=== PATIENT | female | born 1930 | race Caucasian/White ===

== ENCOUNTER 2017-05-20 09:26 | Emergency (ER) | payer MEDICARE ==
[2017-05-20 10:27] VITALS: BP 134/55
--- NOTE | 2017-05-20 11:46 | UC ---
Skin Complaint HPI - HPI Summary HPI Summary: pt noted painful itchy spot on the outside of her left ankle yesterday. she thinks it is a bug bite. also noted some itching to a lesser extent on her rt ankle. denies swelling, calf pain, sob, cough, pnd/orthopnea. - History of Current Complaint Chief Complaint: RENEEkin Stated Complaint: BILATERAL ANKLE SWELLING (INSECT BITE) Hx Obtained From: Patient Hx Last Menstrual Period: "years ago." Onset/Duration: Sudden Onset, Lasting Days Onset Severity: Mild Current Severity: Mild Pain Intensity: 2 Location: Other - left ankle Character: Pruritus, Pain Aggravating: Nothing Alleviating: Nothing Associated Signs & Symptoms: Positive: Rash, Tenderness. Negative: Nausea, Vomiting, Diaphoresis, Difficulty Breathing, Fever, Chills, Cough, Wheezing, Chest Pain, Abdominal Pain, Lightheadedness, Syncope, Drainage, Bruising, Red Streaks, Joint Swelling Related History: Possible Reaction to: Insect - Allergy/Home Medications Allergies/Adverse Reactions: Allergies Allergy/AdvReac Type Severity Reaction Status Date / Time Lactose Intolerance (GI) Allergy GI Upset Verified 05/20/17 10:19 Penicillins Allergy Unknown Verified 05/20/17 10:19 Reaction Details Sulfa Antibiotics Allergy Unknown Verified 05/20/17 10:19 Reaction Details Codeine AdvReac Headache, Verified 05/20/17 10:19 Nausea Home Medications: Home Medications Acetaminophen [Acetaminophen Extra Stren] 500 mg PO BID PRN 05/20/17 [History Confirmed 05/20/17] Cyclosporine 0.05% OPHTH (NF) [Restasis 0.05% OPHTH] 1 drop BOTH EYES BID [History Confirmed 05/20/17] Review of Systems Constitutional: Negative Skin: Rash ENT: Negative Respiratory: Negative Cardiovascular: Negative Gastrointestinal: Negative Genitourinary: Negative Musculoskeletal: Negative Neurological: Negative All Other Systems Reviewed And Are Negative: Yes PMH/Surg Hx/FS Hx/Imm Hx Cardiovascular History: Hypertension Other History Of: Negative For: HIV, Hepatitis B, Hepatitis C - Surgical History Surgical History: Yes Surgery Procedure, Year, and Place: Bilateral Cataract Extraction. Eye lift - Family History Known Family History: Positive: Hypertension Negative: Cardiac Disease, Diabetes, Renal Disease - Social History Occupation: Retired Alcohol Use: Occasionally Substance Use Type: None Smoking Status (MU): Never Smoked Tobacco - Immunization History Most Recent Influenza Vaccination: [id number] Physical Exam Triage Information Reviewed: Yes Appearance: Well-Appearing, No Pain Distress, Well-Nourished Vital Signs: Initial Vital Signs Temp 98.2 F 05/20/17 10:22 Pulse 80 05/20/17 10:22 Resp 20 05/20/17 10:22 BP 134/55 05/20/17 10:22 Pulse Ox 98 05/20/17 10:22 Vital Signs Reviewed: Yes Eyes: Positive: Conjunctiva Clear. Negative: Discharge ENT: Positive: Hearing grossly normal. Negative: Muffled/hoarse voice Neck: Positive: Supple Respiratory: Positive: Lungs clear, Normal breath sounds, No respiratory distress, No accessory muscle use Cardiovascular: Positive: RRR, No Murmur Musculoskeletal Exam: Normal Neurological: Positive: Alert, Muscle Tone Normal Psychological: Positive: Age Appropriate Behavior Skin: Positive: Other - area of puritis and tenderness on later aspect of rt ankle surrounding a central spot that looks like a bug bite. no redness or calor noted Course/Dx - Differential Diagnoses - Skin Complaint Differential Diagnoses: Cellulitis, Scabies, Other - insect bite, tick bite - Diagnoses Provider Diagnoses: tick bite Discharge - Discharge Plan Condition: Stable Disposition: HOME Patient Education Materials: Insect Bite or Sting (ED), Tick Bite (ED), Lyme Disease (ED), Cold Compress or Soak (ED) Referrals: Soulemyane Ibarra MD [Primary Care Provider] - If Needed Additional Instructions: YOU HAVE WHAT APPEARS TO BE AN INSECT BITE ON YOUR LEFT ANKLE. THE BITE LOOKS LIKE IT COULD HAVE BEEN A TICK BITE BUT WE ARE NOT SURE. SO, WE HAVE INCLUDED INFORMATION ON TICK BITES. BECAUSE TICK BITES CAN CAUSE LYME DISEASE, WE ALSO INCLUDED INFORMATION ON LYME DISEASE SO THAT YOU WILL KNOW WHAT THE SYMPTOMS ARE THAT SHOULD GIVE YOU CAUSE TO SEEK FURTHER EVALUATION. Images Feet (Multiple View): 1 - tender, puritic area
== END 2017-05-20 11:34 | disposition home or self-care (01) ==
LOC: UCCORT 09:26
DX: S90.562A Insect bite (nonvenomous), left ankle, initial encounter (principal); W57.XXXA Bitten or stung by nonvenomous insect and other nonvenomous arthropods, initial encounter; Y92.9 Unspecified place or not applicable
CPT/HCPCS: 99212; G0463

== ENCOUNTER 2017-07-27 12:42 | Emergency (ER) | payer MEDICARE ==
[2017-07-27 13:02] VITALS: BP 134/60
--- NOTE | 2017-07-27 14:03 | UC ---
Abdominal Pain Female HPI - HPI Summary HPI Summary: she says she had a pain in the lefter lateral abd last night and a briefly this morning. It has resolved now. There is no constipation, urinary symptoms, vomiting, blood in stool, fever and she is eating without symptoms. she has had a pain in this location before as well. she also believes she fell onto her left side within the last week. - History of Current Complaint Chief Complaint: UCAbdominalPain Stated Complaint: LEFT SIDE PAIN Time Seen by Provider: 07/27/17 13:38 Hx Obtained From: Patient Hx Last Menstrual Period: "years ago." Onset/Duration: Sudden Onset Severity Initially: Severe Severity Currently: None Location: Discrete At: LUQ Radiates: No Character: Aching Aggravating Factor(s): Nothing Alleviating Factor(s): Nothing Associated Signs and Symptoms: Negative: Fever, Cough, Chest Pain, Dizzy, Back Pain, Constipation, Blood in Stool, Urinary Symptoms, Decreased Appetite, Vaginal Bleeding, Vaginal Discharge, Nausea, Vomiting, Diarrhea Allergies/Adverse Reactions: Allergies Allergy/AdvReac Type Severity Reaction Status Date / Time Lactose Intolerance (GI) Allergy GI Upset Verified 07/27/17 13:02 Penicillins Allergy Unknown Verified 07/27/17 13:02 Reaction Details Sulfa Antibiotics Allergy Unknown Verified 07/27/17 13:02 Reaction Details Codeine AdvReac Headache, Verified 07/27/17 13:02 Nausea PMH/Surg Hx/FS Hx/Imm Hx Previously Healthy: No Other History Of: Negative For: HIV, Hepatitis B, Hepatitis C - Surgical History Surgical History: Yes Surgery Procedure, Year, and Place: Bilateral Cataract Extraction. Eye lift - Family History Known Family History: Positive: Hypertension Negative: Cardiac Disease, Diabetes, Renal Disease - Social History Occupation: Retired Alcohol Use: Occasionally Substance Use Type: None Smoking Status (MU): Never Smoked Tobacco - Immunization History Most Recent Influenza Vaccination: [id number] Review of Systems Gastrointestinal: Abdominal Pain All Other Systems Reviewed And Are Negative: Yes Physical Exam Triage Information Reviewed: Yes Appearance: Well-Appearing, No Pain Distress, Well-Nourished Vital Signs: Initial Vital Signs Temp 98.3 F 07/27/17 12:57 Pulse 73 07/27/17 12:57 Resp 16 07/27/17 12:57 BP 134/60 07/27/17 12:57 Pulse Ox 97 07/27/17 12:57 Vital Signs Reviewed: Yes Eye Exam: Normal ENT Exam: Normal Dental Exam: Normal Neck exam: Normal Respiratory Exam: Normal Cardiovascular Exam: Other - During my exam she has increased pain with cough and palpation of the left lateral lower ribs. There was no pain with forced left hip flexion. Abd was commpletely soft and non tender even with deep palpation. Abdominal Exam: Normal Abdomen Description: Negative: CVA Tenderness (R), CVA Tenderness (L), Hepatomegaly, Peritoneal Signs, Pulsatile Mass, Splenomegaly Musculoskeletal Exam: Normal Neurological Exam: Normal Psychological Exam: Normal Skin Exam: Normal Abd Pain Female Course/Dx - Course Course Of Treatment: no radiation to the flank or groin to suggest AAA and the pain was reprodicible with palpation of the left ribs. she says she remembers a few falls lately once on the right shoulder which needed PT and again on her left side. the pain has resoved now. No clinical signs of severe diverticulitis , constipation, kidney stone, uti. - Differential Dx/Diagnosis Provider Diagnoses: left rib pain. Discharge - Discharge Plan Condition: Good Disposition: HOME Patient Education Materials: Rib Contusion (ED) Referrals: Souleymane Ibarra MD [Primary Care Provider] - 3 Days
== END 2017-07-27 14:02 | disposition home or self-care (01) ==
LOC: UCCORT 12:42
DX: R07.81 Pleurodynia (principal); Z88.0 Allergy status to penicillin; Z88.2 Allergy status to sulfonamides; Z88.5 Allergy status to narcotic agent
CPT/HCPCS: 99211; G0463

== ENCOUNTER 2017-08-15 15:28 | Emergency (ER) | payer MEDICARE ==
[2017-08-15 15:48] VITALS: BP 119/63
--- NOTE | 2017-08-15 16:52 | RAD ---
INDICATION: Left rib injury. COMPARISON: There are no prior studies available for comparison. TECHNIQUE: 3 views of the left ribs and dual-energy PA views of the chest were obtained. FINDINGS: The bones appear osteopenic, no rib fracture is seen. The heart is within normal limits in size. Mediastinal and hilar contours appear normal. The lungs are hyperinflated and clear. No pneumothorax or pleural effusion is seen. IMPRESSION: OSTEOPENIA, LIMITING THE STUDY, NO FRACTURE IS SEEN.
--- NOTE | 2017-08-15 16:52 | UC ---
Truncal Trauma HPI - HPI Summary HPI Summary: 87 year old female who fell 3 days ago. She was on the floor on her knees trying to fix a remote. She went to get up , cough her foot on a rug and fell forward from the kneeling position and his her left side of the ribs on the wall . Denies LOC, SHARMA, arm or leg pain. Has had some left sided rib pain since. Denies SOB, CP, MAURICIO, palpitations, syncope. She does remember falling. No more falls. No abdominal pain otherwise. No blood in stool, no dizziness or vision changes. - History Of Current Complaint Chief Complaint: UCGeneralIllness Stated Complaint: LEFT SIDE PAIN PT FELL Time Seen by Provider: 08/15/17 15:43 Hx Obtained From: Patient Hx Last Menstrual Period: N/A Onset/Duration: Sudden Onset Severity Initially: Moderate Aggravating Factor(s): Movement Alleviating factor(s): Rest - Allergies/Home Medications Allergies/Adverse Reactions: Allergies Allergy/AdvReac Type Severity Reaction Status Date / Time Lactose Intolerance (GI) Allergy GI Upset Verified 08/15/17 15:48 Penicillins Allergy Unknown Verified 08/15/17 15:48 Reaction Details Sulfa Antibiotics Allergy Unknown Verified 08/15/17 15:48 Reaction Details Codeine AdvReac Headache, Verified 08/15/17 15:48 Nausea Home Medications: Home Medications Aspirin [Aspirin 81 MG TAB] 81 mg PO BEDTIME 08/15/17 [History Confirmed ] Olopatadine 0.1% OPHTH (NF) [Patanol 0.1% OPHTH (NF)] 1 drop RIGHT EYE DAILY 03/27 [History Confirmed 08/15/17] PMH/Surg Hx/FS Hx/Imm Hx Previously Healthy: Yes Endocrine History: Dyslipidemia Cardiovascular History: Hypertension GI/ History: Gastroesophageal Reflux Psychological History: Anxiety Other History Of: Negative For: HIV, Hepatitis B, Hepatitis C - Surgical History Surgical History: Yes Surgery Procedure, Year, and Place: Bilateral Cataract Extraction. Eye lift - Family History Known Family History: Positive: Hypertension Negative: Cardiac Disease, Diabetes, Renal Disease - Social History Occupation: Retired Alcohol Use: Occasionally Substance Use Type: None Smoking Status (MU): Never Smoked Tobacco - Immunization History Most Recent Influenza Vaccination: [id number] Review of Systems Musculoskeletal: Arthralgia Is Patient Immunocompromised?: No All Other Systems Reviewed And Are Negative: Yes Physical Exam Triage Information Reviewed: Yes Appearance: Well-Appearing, No Pain Distress, Well-Nourished Vital Signs: Initial Vital Signs Temp 98.2 F 08/15/17 15:43 Pulse 93 08/15/17 15:43 Resp 18 08/15/17 15:43 BP 119/63 08/15/17 15:43 Pulse Ox 98 08/15/17 15:43 Vital Signs Reviewed: Yes Eye Exam: Normal ENT Exam: Normal Dental Exam: Normal Neck exam: Normal Neck: Positive: 1 Respiratory Exam: Normal Cardiovascular Exam: Normal Abdominal Exam: Normal Musculoskeletal Exam: Normal Musculoskeletal: Positive: Other: - left costal area with tenderness to palpation laterally. no bruising. no anterior chest pain to palpation. Neurological Exam: Normal Psychological Exam: Normal Skin Exam: Normal Truncal Trauma Course/Dx - Course Course Of Treatment: xray shows no fracture or acute concerns - Differential Dx/Diagnosis Provider Diagnoses: costochondritis Discharge - Discharge Plan Condition: Good Disposition: HOME Patient Education Materials: Costochondritis (ED) Referrals: Souleymane Ibarra MD [Primary Care Provider] - 4 Days
== END 2017-08-15 17:10 | disposition home or self-care (01) ==
LOC: UCCORT 15:28
DX: M94.0 Chondrocostal junction syndrome [Tietze] (principal); E78.5 Hyperlipidemia, unspecified; I10 Essential (primary) hypertension; K21.9 Gastro-esophageal reflux disease without esophagitis; F41.9 Anxiety disorder, unspecified; W01.198A Fall on same level from slipping, tripping and stumbling with subsequent striking against other object, initial encounter; Y92.009 Unspecified place in unspecified non-institutional (private) residence as the place of occurrence of the external cause; Z88.5 Allergy status to narcotic agent; Z88.2 Allergy status to sulfonamides; Z88.0 Allergy status to penicillin
CPT/HCPCS: 99211; G0463

== ENCOUNTER 2017-12-07 10:33 | Emergency (ER) | payer MEDICARE ==
[2017-12-07 12:55] VITALS: BP 138/71
--- NOTE | 2017-12-07 13:22 | ED ---
Upper Extremity Pain - HPI Summary HPI Summary: 87 yr old female with the complaint of right shoulder, forearm and elbow pain. Onset of pain last evening 6 pm when she was walking on a carpet at home and hit coffee table with her right foot causing her to fall. She states she landed on her right elbow. Denies LOC. Denies other injuries. No neck pain. No chest or back pain. The patient has not had numbness or weakness in the right hand. She has no other complaints. - History of Current Complaint Chief Complaint: UCUpperExtremity Stated Complaint: RIGHT ARM INJURY Time Seen by Provider: 12/07/17 13:08 Hx Last Menstrual Period: N/A - Allergies/Home Medications Allergies/Adverse Reactions: Allergies Allergy/AdvReac Type Severity Reaction Status Date / Time Lactose Intolerance (GI) Allergy GI Upset Verified 12/07/17 12:42 Penicillins Allergy Unknown Verified 12/07/17 12:42 Reaction Details Sulfa Antibiotics Allergy Unknown Verified 12/07/17 12:42 Reaction Details Codeine AdvReac Headache, Verified 12/07/17 12:42 Nausea PMH/Surg Hx/FS Hx/Imm Hx Endocrine/Hematology History: Denies: Hx Diabetes, Hx Thyroid Disease Cardiovascular History: Reports: Hx Hypertension Denies: Hx Congestive Heart Failure, Hx Deep Vein Thrombosis, Hx Myocardial Infarction, Hx Pacemaker/ICD Respiratory History: Denies: Hx Asthma, Hx Chronic Obstructive Pulmonary Disease (COPD), Hx Lung Cancer, Hx Pneumonia, Hx Pulmonary Embolism GI History: Denies: Hx Gall Bladder Disease, Hx Gastrointestinal Bleed, Hx Ulcer, Hx Urosepsis History: Denies: Hx Dialysis, Hx Kidney Stones, Hx Renal Disease Neurological History: Denies: Hx Dementia, Hx Migraine, Hx Seizures, Hx Transient Ischemic Attacks (TIA) Psychiatric History: Reports: Hx Depression Denies: Hx Anxiety, Hx Schizophrenia, Hx Bipolar Disorder - Surgical History Surgery Procedure, Year, and Place: Bilateral Cataract Extraction. Eye lift Infectious Disease History: No Infectious Disease History: Denies: Hx Clostridium Difficile, Hx Hepatitis, Hx Human Immunodeficiency Virus (HIV), Hx of Known/Suspected MRSA, Hx Shingles, Hx Tuberculosis, Hx Known/ Suspected VRE, Hx Known/Suspected VRSA, History Other Infectious Disease, Traveled Outside the [place] in Last 30 Days - Family History Known Family History: Positive: Hypertension Negative: Cardiac Disease, Diabetes, Renal Disease - Social History Alcohol Use: Occasionally Substance Use Type: Reports: None Smoking Status (MU): Never Smoked Tobacco Review of Systems Negative: Fever, Chills Negative: Palpitations, Chest Pain Negative: Shortness Of Breath Negative: Abdominal Pain Positive: Other - right shoulder and arm pain Positive: Bruising - right elbow Negative: Headache, Weakness, Paresthesia, Numbness, Syncope, Slurred Speech Psychological: Normal All Other Systems Reviewed And Are Negative: Yes Physical Exam Triage Information Reviewed: Yes Vital Signs On Initial Exam: Initial Vitals Temp Pulse Resp BP Pulse Ox 98.3 F 75 18 138/71 100 12/07/17 12:46 12/07/17 12:46 12/07/17 12:46 12/07/17 12:46 12/07/17 12:46 Vital Signs Reviewed: Yes Appearance: Positive: Well-Appearing, No Pain Distress Skin: Positive: Skin Color Reflects Adequate Perfusion, Other - bruise right elbow Head/Face: Positive: Normal Head/Face Inspection Eyes: Positive: EOMI Neck: Positive: Nontender Respiratory/Lung Sounds: Positive: Clear to Auscultation, Breath Sounds Present Cardiovascular: Positive: RRR. Negative: Murmur Abdomen Description: Positive: Nontender Musculoskeletal: Positive: Other - the patient has tenderness over the proximal right humerus and over the right elbow with STS over the right elbow. Neuro vasc intact right arm. Neurological: Positive: Sensory/Motor Intact, Alert, Oriented to Person Place, Time, CN Intact II-III, Normal Gait, Speech Normal Psychiatric: Positive: Normal - Radha Coma Scale Best Eye Response: 4 - Spontaneous Best Motor Response: 6 - Obeys Commands Best Verbal Response: 5 - Oriented Coma Scale Total: 15 Diagnostics - Vital Signs Vital Signs Temp Pulse Resp BP Pulse Ox 12/07/17 12:46 98.3 F 75 18 138/71 100 - Laboratory Lab Statement: Any lab studies that have been ordered have been reviewed, and results considered in the medical decision making process. - Radiology right shoulder, humerus, elbow Xray Interpretation: No Acute Changes Radiology Interpretation Completed By: Radiologist - final report reviewed from the radiologist. Course/Dx - Course Course Of Treatment: 87 yr old with osteoporosis, and contusion to elbow and shoulder. Will sling her right arm, and DC to home to see PMD and ortho referral. - Diagnoses Provider Diagnoses: Contusion of shoulder, right, Elbow contusion Discharge - Discharge Plan Condition: Good Disposition: HOME Patient Education Materials: Contusion in Adults (ED), Shoulder Pain (ED), Elbow Sprain (ED) Referrals: Souleymane Ibarra MD [Primary Care Provider] -
--- NOTE | 2017-12-07 14:11 | RAD ---
HISTORY: Right humerus trauma COMPARISONS: None VIEWS: 2, Frontal internal rotation and external rotation views of the right humerus FINDINGS: BONE DENSITY: There is diffuse osteopenia. BONES: There is no displaced fracture. 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 ALIGNMENT: There is no dislocation. SOFT TISSUES: Unremarkable. OTHER FINDINGS: None. IMPRESSION: OSTEOPENIA. NO ACUTE OSSEOUS INJURY. IF SYMPTOMS PERSIST, RECOMMEND REPEAT IMAGING.
--- NOTE | 2017-12-07 14:11 | RAD ---
HISTORY: Right elbow trauma COMPARISONS: None VIEWS: 4, Frontal, lateral, and oblique views of the right elbow FINDINGS: BONE DENSITY: There is diffuse osteopenia. BONES: There is no displaced fracture. JOINTS: There is mild osteoarthritis of the ulnar-trochlear and radial-capitellar articulations. ALIGNMENT: There is no dislocation. SOFT TISSUES: Unremarkable. OTHER FINDINGS: None. IMPRESSION: 1. OSTEOPENIA. 2. OSTEOARTHRITIS. 3. NO ACUTE OSSEOUS INJURY. IF SYMPTOMS PERSIST, RECOMMEND REPEAT IMAGING
--- NOTE | 2017-12-07 14:12 | RAD ---
HISTORY: Right shoulder trauma COMPARISONS: October 29, 2016 VIEWS: 3, Frontal internal rotation, external rotation, and outlet views of the right shoulder FINDINGS: BONE DENSITY: There is diffuse osteopenia. BONES: There is no displaced fracture. JOINTS: There is mild to moderate osteoarthritis of the a.c. and glenohumeral joints. ALIGNMENT: There is no dislocation. SOFT TISSUES: Unremarkable. OTHER FINDINGS: None. IMPRESSION: OSTEOPENIA. OSTEOARTHRITIS. NO ACUTE OSSEOUS INJURY. IF SYMPTOMS PERSIST, RECOMMEND REPEAT IMAGING
== END 2017-12-07 14:39 | disposition home or self-care (01) ==
LOC: UCCORT 10:33
DX: S40.011A Contusion of right shoulder, initial encounter (principal); S50.01XA Contusion of right elbow, initial encounter; W18.39XA Other fall on same level, initial encounter; Y92.9 Unspecified place or not applicable; I10 Essential (primary) hypertension; F32.9 Major depressive disorder, single episode, unspecified; Z88.5 Allergy status to narcotic agent; Z88.0 Allergy status to penicillin; Z88.2 Allergy status to sulfonamides; E73.9 Lactose intolerance, unspecified; Z98.42 Cataract extraction status, left eye; Z98.41 Cataract extraction status, right eye
CPT/HCPCS: 99213; G0463

== ENCOUNTER 2018-06-12 15:49 | Emergency (ER) | payer MEDICARE, OTHER ==
[2018-06-12 16:50] VITALS: BP 144/62
--- NOTE | 2018-06-12 17:12 | UC ---
Skin Complaint HPI - HPI Summary HPI Summary: Pt presents with c/o of scab on left distal medial forearm. Pt thought she had a splinter under skin so she "sterilized" a needle at home an poked the needle under skin to take out splinter. Pt is concerned now that skin around splinter site is not mildly erythematous and concerned there is another splinter in arm. - History of Current Complaint Chief Complaint: UCSkin Time Seen by Provider: 06/12/18 17:05 Stated Complaint: SKIN CONCERN Hx Obtained From: Patient Hx Last Menstrual Period: N/A ?: No Onset/Duration: Sudden Onset, Still Present Skin Exposure Onset/Duration: Days Ago Timing: Constant Onset Severity: Mild Pain Intensity: 0 Location: Discrete - left distal medial wrist Character: Redness Aggravating Factor(s): Touch Alleviating Factor(s): Other - bandaid Associated Signs & Symptoms: Positive: Tenderness Related History: Foreign Body - Allergy/Home Medications Allergies/Adverse Reactions: Allergies Allergy/AdvReac Type Severity Reaction Status Date / Time codeine Allergy Unknown headache, Verified 06/12/18 16:43 nausea lactose Allergy Unknown GI Upset Verified 06/12/18 16:43 Penicillins Allergy Unknown Unknown Verified 06/12/18 16:43 Reaction Details Sulfa (Sulfonamide Allergy Unknown Unknown Verified 06/12/18 16:43 Antibiotics) Reaction Details Review of Systems Constitutional: Negative Skin: Other - erythema and possible FB Eyes: Negative ENT: Negative Respiratory: Negative Cardiovascular: Negative Gastrointestinal: Negative Genitourinary: Negative Motor: Negative Neurovascular: Negative Musculoskeletal: Negative Neurological: Negative Psychological: Negative Is Patient Immunocompromised?: No All Other Systems Reviewed And Are Negative: Yes PMH/Surg Hx/FS Hx/Imm Hx Previously Healthy: Yes Endocrine History: Dyslipidemia Cardiovascular History: Hypertension Other History Of: Negative For: HIV, Hepatitis B, Hepatitis C - Surgical History Surgical History: Yes Surgery Procedure, Year, and Place: Bilateral Cataract Extraction. Eye lift - Family History Known Family History: Positive: Hypertension Negative: Cardiac Disease, Diabetes, Renal Disease - Social History Occupation: Retired Lives: Alone Alcohol Use: Rare Substance Use Type: None Smoking Status (MU): Never Smoked Tobacco Have You Smoked in the Last Year: No - Immunization History Most Recent Influenza Vaccination: [id number] Physical Exam Triage Information Reviewed: Yes Appearance: Well-Appearing Vital Signs: Initial Vital Signs Temp 97.8 F 06/12/18 16:46 Pulse 79 06/12/18 16:46 Resp 20 06/12/18 16:46 BP 144/62 06/12/18 16:46 Pulse Ox 97 06/12/18 16:46 Vital Signs Reviewed: Yes Eye Exam: Normal ENT: Positive: Hearing grossly normal Neck exam: Normal Respiratory Exam: Normal Musculoskeletal Exam: Normal Neurological Exam: Normal Psychological Exam: Normal Skin Exam: Other - small, healing wound, left medial distal posterior forearm. No purulent discharge, non tender , no FB , two dried scabs. number 1: 2 X 1mm, Number 2: 4mm X 3mm Course/Dx - Differential Diagnoses - Skin Complaint Differential Diagnoses: Cellulitis - Diagnoses Provider Diagnoses: healing wounds Discharge - Sign-Out/Discharge Documenting (check all that apply): Patient Departure - Discharge Plan Condition: Stable Disposition: HOME Patient Education Materials: Acute Wound Care (ED), Acute Wounds (ED) Referrals: Souleymane Ibarra MD [Primary Care Provider] - If Needed Additional Instructions: Per institutional requirements, I have reviewed the chart, however, I was not consulted specifically or made aware of this patient by the above midlevel provider. I did not personally evaluate, interact with , or disposition this patient. - Billing Disposition and Condition Condition: STABLE Disposition: Home
== END 2018-06-12 17:20 | disposition home or self-care (01) ==
LOC: UCCORT 15:49
DX: S50.912A Unspecified superficial injury of left forearm, initial encounter (principal); X58.XXXA Exposure to other specified factors, initial encounter; Y93.89 Activity, other specified; Y92.009 Unspecified place in unspecified non-institutional (private) residence as the place of occurrence of the external cause; Z88.4 Allergy status to anesthetic agent; Z88.0 Allergy status to penicillin; Z88.1 Allergy status to other antibiotic agents
CPT/HCPCS: 99211; G0463

== ENCOUNTER 2019-02-27 09:50 | Emergency (ER) | payer MEDICARE ==
[2019-02-27 11:00] VITALS: BP 135/55
--- NOTE | 2019-02-27 12:08 | UC ---
Lower Extremity/Ankle HPI - HPI Summary HPI Summary: Pt presents with c/o left lower leg pain that began "months ago" and worsens with walking. Pt denies injury but does report she had a carotid endarterectomy one month ago and has been more sedentary than usual - History of Current Complaint Chief Complaint: UCLowerExtremity Stated Complaint: BILATERAL LEG PAIN Time Seen by Provider: 02/27/19 11:07 Hx Obtained From: Patient Hx Last Menstrual Period: N/A ?: No Onset/Duration: Gradual Onset, Lasting Weeks, Still Present, Worse Since - onset Severity Initially: Mild Severity Currently: Moderate Pain Intensity: 8 Aggravating Factor(s): Ambulation Alleviating Factor(s): Rest Able to Bear Weight: Yes - Risk Factors Gout Risk Factors: Age Over 40, Peripherial Vascular Disease DVT Risk Factors: Negative Septic Arthritis Risk Factor: Extremes of Age - Allergies/Home Medications Allergies/Adverse Reactions: Allergies Allergy/AdvReac Type Severity Reaction Status Date / Time codeine Allergy Unknown headache, Verified 02/27/19 11:03 nausea lactose Allergy Unknown GI Upset Verified 02/27/19 11:03 Penicillins Allergy Unknown Unknown Verified 02/27/19 11:03 Reaction Details Sulfa (Sulfonamide Allergy Unknown Unknown Verified 02/27/19 11:03 Antibiotics) Reaction Details Home Medications: Home Medications Atorvastatin* [Lipitor*] 20 mg PO 1700 02/27/19 [History Confirmed 02/27/19] Calcium Carb/Vitamin D3/Vit K1 [Viactiv 500-500-40 mg-Unt-Mcg] 1 chw PO DAILY [History Confirmed 02/27/19] Cholecalciferol (Vitamin D3) [Vitamin D3] 1,000 unit PO DAILY 02/27/19 [History Confirmed 02/27/19] PMH/Surg Hx/FS Hx/Imm Hx Previously Healthy: Yes Endocrine History: Dyslipidemia Cardiovascular History: Cardiac Disease, Hypertension Other History Of: Negative For: HIV, Hepatitis B, Hepatitis C - Surgical History Surgical History: Yes Surgery Procedure, Year, and Place: Bilateral Cataract Extraction. Eye lift,. carotid artery operation 01/2019 - Family History Known Family History: Positive: Hypertension Negative: Cardiac Disease, Diabetes, Renal Disease - Social History Occupation: Retired Lives: Alone Alcohol Use: Rare Substance Use Type: None Smoking Status (MU): Never Smoked Tobacco Have You Smoked in the Last Year: No - Immunization History Most Recent Influenza Vaccination: [id number] Vaccination Up to Date: Yes Review of Systems All Other Systems Reviewed And Are Negative: Yes Constitutional: Positive: Negative Skin: Positive: Negative Eyes: Positive: Negative ENT: Positive: Negative Respiratory: Positive: Negative Cardiovascular: Positive: Negative Gastrointestinal: Positive: Negative Genitourinary: Positive: Negative Motor: Positive: Negative Neurovascular: Positive: Negative Musculoskeletal: Positive: Arthralgia, Myalgia Neurological: Positive: Negative Psychological: Positive: Negative Is Patient Immunocompromised?: No Physical Exam Triage Information Reviewed: Yes Appearance: Well-Appearing Vital Signs: Initial Vital Signs Temp 97.7 F 02/27/19 10:56 Pulse 73 02/27/19 10:56 Resp 20 02/27/19 10:56 BP 135/55 02/27/19 10:56 Pulse Ox 99 02/27/19 10:56 Vital Signs Reviewed: Yes Eye Exam: Normal ENT Exam: Normal Dental Exam: Normal Neck exam: Normal Respiratory Exam: Normal Cardiovascular Exam: Normal Musculoskeletal: Positive: Edema @ - right calf measurement 34.5 cm and left calf 35 cm. pt c/o pain in left calf, and knee joint with palpation Neurological Exam: Normal Psychological Exam: Normal Skin Exam: Normal Diagnostics - Radiology No standard instances Radiology Interpretation Completed By: Radiologist - IMPRESSION: NO EVIDENCE OF DEEP VENOUS THROMBOSIS IS IDENTIFIED. Lower Extremity Course/Dx - Differential Dx/Diagnosis Differential Diagnosis/HQI/PQRI: DVT, Other - PVD, PAD, intermittent claudication Provider Diagnosis: Left leg pain Discharge - Sign-Out/Discharge Documenting (check all that apply): Patient Departure All imaging exams completed and their final reports reviewed: Yes - Discharge Plan Condition: Stable Disposition: HOME Patient Education Materials: Leg Pain (ED) Referrals: Souleymane Ibarra MD [Primary Care Provider] - As Soon As Possible - Billing Disposition and Condition Condition: STABLE Disposition: Home
== END 2019-02-27 12:15 | disposition home or self-care (01) ==
LOC: UCCORT 09:50
DX: M79.662 Pain in left lower leg (principal); E78.5 Hyperlipidemia, unspecified; Z88.5 Allergy status to narcotic agent; Z88.0 Allergy status to penicillin; Z88.2 Allergy status to sulfonamides; Z79.899 Other long term (current) drug therapy
CPT/HCPCS: 99211; G0463

== ENCOUNTER 2019-05-05 11:56 | Emergency (ER) | payer MEDICARE ==
[2019-05-05 12:36] VITALS: BP 140/67
--- OUTSIDE RECORDS SUMMARY | 2019-05-05 12:40 | XMS REPORT | Continuity of Care Document ---
:1930 External Reference #:[id number] Author Name Mikey Elizondo PA Address [address], [address] [place] [address] Care Team Providers Name Role Phone Souleymane Ibarra MD Care Team Information [employer] Research Scientist Unavailable Souleymane Ibarra MD Primary Care Physician Unavailable Payers Date Identification Numbers Payment Provider Subscriber Policy Number: [id number] [employer] Anita Tsang PayID: [id number] [address] [address] [place] [address] Problems Active Problems Provider Date Disturbance of salivary secretion Souleymane Ibarra MD Onset: 08/14/2013 Osteoarthritis Souleymane Ibarra MD Onset: 09/01/2012 Dystrophia unguium Souleymane Ibarra MD Onset: 03/27/2012 Carpal tunnel syndrome Souleymane Ibarra MD Onset: 03/17/2012 Acquired trigger finger Souleymane Ibarra MD Onset: 03/17/2012 Hyperlipidemia Souleymane Ibarra MD Onset: 09/03/2011 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 Souleymane Ibarra MD Onset: heart failure Family History Date Family Member(s) Observation Comments First Brother Liver Cancer First Brother Kidney Cancer Uncle Heart Disease Aunt Cancer Social History Type Date Description Comments Sex Unknown Marital Status Lives With Spouse Occupation Retired Tobacco Use Start: Unknown Never Smoked Cigarettes ETOH Use Rarely consumes alcohol Tobacco Use Start: Unknown Patient denies history of smoking Recreational Drug Use Denies Drug Use Smoking Status Reviewed: 04/14/19 Patient denies history of smoking Allergies, Adverse Reactions, Alerts Active Allergies Reaction Severity Comments Date Penicillins Rash 12/28/2008 Nitroglycerin Sensitive per the patient. 03/17/2012 Codeine sensitivity 09/26/2005 Sulfadiazine Nausea 12/28/2008 Lactose Intolerance 12/28/2008 Latex 05/31/2015 Medications Active Medications SIG Qnty Indications Ordering Provider Date Lipitor 1 po qd 90tabs Souleymane Ibarra MD 09/25/2005 20mg Tablets Tylenol 1-2 Q6HR prn Souleymane Ibarra MD 09/25/2005 325mg Tablets Lisinopril 1 po qd 30tabs Unknown 20mg Tablets Effexor XR 1 po qd 90caps Souleymane Ibarra MD 75mg Caps ER 24HR Omeprazole 1 tab daily Unknown 20mg Capsules DR Echevarria 1 drop both eyes Unknown 0.05% Emulsion twice daily. please dispense 180 vials, which is 3 month supply Pataday prn for eyes Unknown 0.2% Solution Clopidogrel Bisulfate Unknown 75mg Tablets Vitamin B 6 take one by mouth Unknown 50mg daily. Tablets Viactiv Unknown [id number] Chewtabs Vitamin B-12 take one every Unknown Natural day 500mcg Tablets Aspirin 81 Low Dose 1 tab daily Unknown 81mg Chewtabs History Medications Prilosec 1 po qd 90Souleymane Gómez MD 04/27/2013 - 20mg Capsules DR 05/31/2015 Zyrtec Allergy 1 po qd 90caps Souleymane Ibarra MD 03/06/2013 - 10mg 05/31/2015 Capsules Lamisil At as directed tid 60units Souleymane Ibarra MD 02/05/2013 - 1% Cream 05/31/2015 Viactiv Flavor Glides Souleymane Ibarra MD 09/15/2009 - 05/31/2015 Tablets Vitamin C Souleymane Ibarra MD 09/15/2009 - 100mg Chewtabs 05/31/2015 Vitamin D 1 po qd Souleymane Ibarra MD 06/15/2009 - 1000Unit Tablets 05/31/2015 Aspirin 1 po qd Souleymane Ibarra MD 09/26/2005 - 81mg Chewtabs 05/31/2015 Xylitol Unknown - Powder 05/31/2015 Pilocarpine HCL Miki Silverman MD - 5mg Tablets 05/31/2015 Restasis 1 drop both eyes Unknown - 0.05% Emulsion bid 05/31/2015 Viactiv Unknown - 05/31/2015 Ocuvite Preservision Unknown - 05/31/2015 Vitamin B-6 Unknown - 05/31/2015 Vitamin B 12 Unknown - 05/31/2015 Vitamin E Unknown - 05/31/2015 Vitamin C Unknown 05/30/2015 Multivitamins Unknown - 05/31/2015 Lactase Enzyme Unknown - 05/31/2015 Vitamin D Unknown - 05/30/2015 Meclizine HCL Unknown - 05/31/2015 Ambien Unknown - 05/31/2015 Lipitor Unknown - 05/30/2015 Acetaminophen Unknown - 05/30/2015 Aspir-81 Unknown 05/30/2015 Omeprazole Unknown 05/30/2015 Norvasc Unknown 05/31/2015 Effexor XR Unknown - 05/30/2015 Medications Administered in Office Medication SIG Qnty Indications Ordering Provider Date Methylprednisolone acetate Guillermina Martínez, 01/29/2017 (Depomedrol) 80mg injection [facility] Injection Depomedrol 40mg/1cc Guillermina Martínez, 05/31/2015 (methylprednisolone acetate) [facility] Injection Depo-Medrol 20mg Giullermina Martínez, 05/31/2015 Injection [facility] Depomedrol 40mg/1cc Sanjuana De MD 11/18/2008 (methylprednisolone acetate) Injection Depomedrol 40mg/1cc Sanjuana De MD 05/27/2008 (methylprednisolone acetate) Injection Vital Signs Date Vital Result Comment 04/28/2019 11:09am BP Systolic 135 mmHg BP Diastolic 66 mmHg Body Temperature 97.0 F Heart Rate 73 /min Respiratory Rate 20 /min Height 61.5 inches 5'1.50" Weight 127.00 lb BMI (Body Mass Index) 23.6 kg/m2 BSA (Body Surface Area) 1.57 m2 [place] body weight in kilograms 49 kg O2 % BldC Oximetry 97 % Ra Pain Level 0 01/26/2019 3:22pm BP Systolic 115 mmHg BP Diastolic 65 mmHg Body Temperature 98.5 F Heart Rate 92 /min Respiratory Rate 20 /min Height 61.5 inches 5'1.50" Weight 128.00 lb BMI (Body Mass Index) 23.8 kg/m2 BSA (Body Surface Area) 1.57 m2 [place] body weight in kilograms 49 kg O2 % BldC Oximetry 95 % 01/29/2017 1:52pm BP Systolic Sitting Left Arm 148 mmHg BP Diastolic Sitting Left Arm 82 mmHg Heart Rate 94 /min Height 61.5 inches 5'1.50" Weight 132.00 lb BMI (Body Mass Index) 24.5 kg/m2 BSA (Body Surface Area) 1.59 m2 [place] body weight in kilograms 49 kg 05/31/2015 10:50am BP Systolic 152 mmHg BP Diastolic 70 mmHg Heart Rate 77 /min Height 62.5 inches with shoes Weight 135.00 lb BMI (Body Mass Index) 24.3 kg/m2 BSA (Body Surface Area) 1.63 m2 05/06/2009 12:01pm Height 61 inches 5'1" Weight 137.00 lb BMI (Body Mass Index) 25.9 kg/m2 Results Test Date Facility Test Result H/L Range Note Urine Dipstick 04/28/2019 [facility] Ua Color yellow Yellow Ua Clarity clear Clear Ua Leuko negative Negative Ua Nitrite negative Negative Ua Urobilinogen 0.2 0.2 - 1.0 E.U./dL Ua Protein negative Negative Ua PH 6.0 Low 6.5-7.5 Ua Blood negative Negative Ua Specific [place] 1.030 1.010-1.030 Ua Ketones negative Negative Ua Bilirubin negative Negative Ua Glucose negative Negative CBC W/Automated Diff 02/11/2019 [facility] White Blood 7.0 K/uL N 3.1-10.[address] [place] [address] [phone] Red Blood Count 3.46 M/uL Low 3.90-5.40 Hemoglobin 11.1 gm/dL Low 11.6-15.8 Hematocrit 33.8 % Low 36.0-46.1 Mean Cell Volume 97.7 fl N 80.9-99.0 Mean Corpuscular HGB 32.1 pg N 25.9-32.7 Mean Corpuscular HGB Conc 32.8 g/dL N 30.8-34.3 Platelet Count 188 K/uL N 155-360 Red Cell Distri Width SD 50.3 fl High 36-47 Red Cell Distri Width %CV 14.1 % N 11.7-14.4 Mean Platelet Volume 10.2 fl N 8.9-12.4 Neut% 61.8 % N 40.4-72.8 Lymph % 23.9 % N 20.0-42.0 [place] % 8.7 % N 4.3-13.2 Eo% 4.7 % N 0.0-6.6 Bas% 0.6 % N 0.0-1.1 Immature Grans 0.3 % N 0.0-5.0 NRBC % 0.0 /100WBC < 10/ 100 WBC Neut# 4.35 K/uL N 1.8-7.0 Lymph # 1.68 K/uL N 1.0-4.0 [place] # 0.61 K/uL N 0.3-0.9 Eos # 0.33 K/uL N 0.0-0.5 Baso # 0.04 K/uL N 0.0-0.1 Immature Grans Absolute 0.02 K/uL NRBC # 0.00 K/uL Basic Metabolic Panel 02/11/2019 [facility] Glucose 117 mg/dL High 74-106 [address] [place] [address] [phone] BUN 17 mg/dL N 7-18 Creatinine 0.5 mg/dL Low 0.6-1.3 Glom Filtration Rate, Estimate >60 mL/min >60 If >60 mL/min >60 2 BUN/Creat 34.0 ratio Sodium 143 mmol/L N 136-145 Potassium 3.2 mmol/L Low 3.5-5.1 Chloride 112 mmol/L High 98-107 Carbon Dioxide 26 mmol/L N 21-32 Anion Gap 5 mEq/L Low 8-16 Calcium 8.3 mg/dL Low 8.5-10.1 Laboratory test finding 02/11/2019 [facility] Magnesium 2.2 mg/dL 1.8-2.4 [address] [place] [address] [phone] Lipase 98 U/L N 56-289 Aot Request 02/11/2019 [facility] Aot Request Test(s) added [address] [place] [address] [phone] Tests to be added: CRP,MAGNESIUM Urine Dipstick 01/26/2019 [facility] Ua Color Yellow Yellow Ua Clarity Clear Clear Ua Leuko Negative Negative Ua Nitrite Negative Negative Ua Urobilinogen 0.2 0.2 - 1.0 E.U./dL Ua Protein 15 High Negative Ua PH 5.0 Low 6.5-7.5 Ua Blood Negative Negative Ua Specific [place] 1.030 1.010-1.030 Ua Ketones 5 High Negative Ua Bilirubin Negative Negative Ua Glucose Negative Negative 1 ACUTE PANCREATITIS 2 Note: Persistent reduction for 3 months or more in an eGFR <60 mL/min/1.73 m2 defines CKD. Patients with eGFR values >/=60 mL/min/1.73 m2 may also have CKD if evidence of persistent proteinuria is present. The original MDRD equation for estimated GFR is not valid for patients less than 18 years of age. Additional information may be found at www.kdo[facility].org. 3 Tests: CRP,MAGNESIUM Instructions: Procedures Date Code Description Status 01/29/2017 76916 Radiology, Shoulder: Two Views (Sso) Completed 01/29/2017 78182 Radiology, Shoulder: Two Views (Sso) Completed 01/29/201723386 Asp./Injection major joint Completed 05/15/2016 76656 Echocardiogram Complete Completed 05/31/2015 63367 Radiology, Shoulder: Two Views (Sso) Completed 05/31/2015 77341 Radiology, Shoulder: Two Views (Sso) Completed 05/31/201581601 Asp./Injection major joint Completed 03/24/2012 55866 Tendon Sheath Incision (eg for trigger finger) Completed 03/24/2012 34010 Neuroplasty median nerve at carpal tunnel Completed 02/19/2012 Asp/Injection small joint/bursa (ie-fingers,toes) Completed 06/15/2011 Asp/Injection small joint/bursa (ie-fingers,toes) Completed 05/22/2011 06428 Anesthesia, Lens Surgery Completed 05/08/201195303 Anesthesia, Lens Surgery Completed 02/23/2011 Asp/Injection small joint/bursa (ie-fingers,toes) Completed 06/07/2009 57666 Neuroplasty median nerve at carpal tunnel Completed 11/18/2008 Aspiration/Injection joint Completed intermediate(wrist/ankle/elbow/olbursa 05/27/2008 Aspiration/Injection joint Completed intermediate(wrist/ankle/elbow/olbursa Encounters Type Date Location Provider Dx Diagnosis Office Visit 04/28/2019 Urology Mikey Elizondo R31.21 Asymptomatic 11:00a BRANDON Falcon microscopic hematuria Office Visit 01/26/2019 Urology Mikey Elizondo R31.21 Asymptomatic 4:30p BRANDON Falcon microscopic hematuria Office Visit 03/05/2017 Orthopaedic Office Guillermina Martínez M25.511 Pain in right 11:30a S., RPAC shoulder M19.011 Primary osteoarthritis, right shoulder Office Visit 01/29/2017 1:30p Orthopaedic Office Guillermina Martínez M25.511 Pain in right S., RPAC shoulder M75.41 Impingement syndrome of right shoulder M19.011 Primary osteoarthritis, right shoulder Office Visit 07/12/2015 Jenny Martínez 715.11 Osteoarthrosis 10:45a Office Guillermina Jorgensen, Localized Prim RPAC Shoulder Region 726.10 Bursae & Tendon Disorders Shoulder Region Unspec Office Visit 05/31/2015 Jenny Martínez, 715.11 Osteoarthrosis 10:00a Office Guillermina Jorgensen, Localized Prim RPAC Shoulder Region 726.10 Bursae & Tendon Disorders Shoulder Region Unspec 719.41 Pain Joint Shoulder Region E888.9 Unspecified Fall Office Visit 05/06/2009 11:15a Orthopaedic Office Sanjuana De 354.0 Carlos Acuna MD Syndrome Office Visit 12/29/2008 10:00a Orthopaedic Office Sanjuana De 354.0 Carlos Acuna MD Syndrome Office Visit 11/18/2008 8:45a Orthopaedic Office Sanjuana De 354.0 Carlos Acuna MD Syndrome Office Visit 06/17/2008 2:45p Orthopaedic Office Sanjuana De 354.0 Carlos Acuna MD Syndrome Office Visit 05/27/2008 10:30a Orthopaedic Office Sanjuana De 354.0 Carpal Tunnel MD Kalp[place]a Syndrome Office Visit 01/29/2008 9:15a Orthopaedic Office Sanjuana De 719.44 Pain Joint Hand MD Kalpana Plan of Treatment Future Appointment(s):04/29/2020 11:00 am - Mikey Elizondo, PA at [email or web address] - Mikey Elizondo, PAR31.21 Asymptomatic microscopic hematuriaComments:S Ilan negative for RBCs. Patient reassured. Follow 12 months or when necessary.
--- NOTE | 2019-05-05 12:43 | UC ---
UC General HPI - HPI Summary HPI Summary: pt is c/o a rash and itching over the outside of her L elbow after doing some weeding. it began as some red spots. no self tx. onset was a few weeks ago. denies any other rash. - History of Current Complaint Chief Complaint: RENEEkin Stated Complaint: SKIN CONCERN ON ARM-BUG BITE Time Seen by Provider: 05/05/19 12:36 Hx Obtained From: Patient Hx Last Menstrual Period: N/A Pain Intensity: 0 Associated Signs & Symptoms: Negative: Fever - Allergy/Home Medications Allergies/Adverse Reactions: Allergies Allergy/AdvReac Type Severity Reaction Status Date / Time codeine Allergy Unknown headache, Verified 05/05/19 12:26 nausea lactose Allergy Unknown GI Upset Verified 05/05/19 12:26 Penicillins Allergy Unknown Unknown Verified 05/05/19 12:26 Reaction Details Sulfa (Sulfonamide Allergy Unknown Unknown Verified 05/05/19 12:26 Antibiotics) Reaction Details Home Medications: Home Medications Melatonin (NF) 1 tab PO 05/05/19 [History] PMH/Surg Hx/FS Hx/Imm Hx Endocrine History: Dyslipidemia Cardiovascular History: Hypertension GI/ History: Gastroesophageal Reflux Psychological History: Depression Other History Of: Negative For: HIV, Hepatitis B, Hepatitis C - Surgical History Surgical History: Yes Surgery Procedure, Year, and Place: Bilateral Cataract Extraction. Eye lift,. carotid artery operation 01/2019 - Family History Known Family History: Positive: Hypertension Negative: Cardiac Disease, Diabetes, Renal Disease - Social History Occupation: Retired Alcohol Use: Rare Substance Use Type: None Smoking Status (MU): Never Smoked Tobacco Have You Smoked in the Last Year: No - Immunization History Most Recent Influenza Vaccination: 8577-2220 Vaccination Up to Date: Yes Review of Systems All Other Systems Reviewed And Are Negative: No Constitutional: Negative: Fever Skin: Positive: Rash Musculoskeletal: Negative: Arthralgia, Edema Physical Exam Triage Information Reviewed: Yes Appearance: Well-Appearing Vital Signs: Initial Vital Signs Temp 97.6 F 05/05/19 12:31 Pulse 74 05/05/19 12:31 Resp 16 05/05/19 12:31 BP 140/67 05/05/19 12:31 Pulse Ox 100 05/05/19 12:31 Vital Signs Reviewed: Yes Respiratory: Positive: No respiratory distress Musculoskeletal: Positive: ROM Intact Neurological: Positive: Alert Psychological: Positive: Age Appropriate Behavior Skin Exam: Normal Skin: Positive: Rashes - Pt has a small area of excoriation/superficial abrasions over her lateral elbow area including the distal humerus and proximal forearm. No erythema, swelling, steaking, blistering or burrows. No additional rashes seen. Course/Dx - Differential Dx - Multi-Symptom Differential Diagnoses: Other - local ized contact dermatitis thus will tx with topical - local steroid. - Diagnoses Provider Diagnosis: Contact dermatitis Discharge - Sign-Out/Discharge Documenting (check all that apply): Patient Departure All imaging exams completed and their final reports reviewed: No Studies - Discharge Plan Condition: Stable Disposition: HOME Prescriptions: Triamcinolone 0.1% OINT(NF) [Kenolog 0.1% OINT(NF)] 1 applic TOPICAL BID 7 Days #1 oint Patient Education Materials: Contact Dermatitis (ED) Referrals: Souleymane Ibarra MD [Primary Care Provider] - 7 Days - Billing Disposition and Condition Condition: STABLE Disposition: Home
== END 2019-05-05 12:57 | disposition home or self-care (01) ==
LOC: UCCORT 11:56
DX: L25.9 Unspecified contact dermatitis, unspecified cause (principal); I10 Essential (primary) hypertension; F32.9 Major depressive disorder, single episode, unspecified
CPT/HCPCS: 99212; G0463